=== PATIENT | male | born 1965 | race Caucasian/White ===

== ENCOUNTER → 2024-11-24 | Outpatient (REF) | payer OTHER ==
[2024-11-24 13:14] LABS: ALT/SGPT 16 U/L (7.0-40); AST/SGOT 18 U/L (<34); CALCIUM LEVEL 9.8 MG/DL (8.3-10.6); CARBON DIOXIDE LEVEL 25 MMOL/L (20-31); CHLORIDE LEVEL 100 MMOL/L (98-107); CHOLESTEROL LEVEL 145 MG/DL (<200); CHOLESTEROL RISK RATIO 3.96 (<5); CREATININE FOR GFR 1.13 MG/DL (0.70-1.30); GLOMERULAR FILTRATION RATE 74.0 (>49); LDL CHOLESTEROL 78.4 MG/DL (<100); NON-HDL-C 108.4 MG/DL; POTASSIUM SERUM 4.3 MMOL/L (3.5-5.1); SODIUM LEVEL 136 MMOL/L (136-145); TRIGLYCERIDES LEVEL 150 MG/DL (<150)
[2024-11-24 13:28] LABS: ESTIMATED AVERAGE GLUCOSE 166.0 MG/DL (60-110)
== END ==
LOC: M LAB REF 12:24
PROVIDERS: ATTEND Family Medicine Addiction Medicine
DX: E11.9 Type 2 diabetes mellitus without complications (principal); M1A.0790 Idiopathic chronic gout, unspecified ankle and foot, without tophus (tophi)

== ENCOUNTER → 2025-01-27 | Outpatient (CLI) | payer OTHER | LOC: M RAD 14:28 | PROVIDERS: ATTEND Physician Assistant | DX: Z12.2 Encounter for screening for malignant neoplasm of respiratory organs (principal); F17.218 Nicotine dependence, cigarettes, with other nicotine-induced disorders; J43.9 Emphysema, unspecified; I25.10 Atherosclerotic heart disease of native coronary artery without angina pectoris ==

== ENCOUNTER → 2025-03-15 | Outpatient (REF) | payer OTHER ==
[2025-03-15 12:54] LABS: ESTIMATED AVERAGE GLUCOSE 174.0 MG/DL (60-110)
[2025-03-15 13:14] LABS: ALT/SGPT 15.0 U/L (7.0-40); AST/SGOT 17.0 U/L (<34); CALCIUM LEVEL 9.3 MG/DL (8.3-10.6); CARBON DIOXIDE LEVEL 27.0 MMOL/L (20-31); CHLORIDE LEVEL 102.0 MMOL/L (98-107); CHOLESTEROL LEVEL 113.0 MG/DL (<200); CHOLESTEROL RISK RATIO 3.53 (<5); CREATININE FOR GFR 1.16 MG/DL (0.70-1.30); GLOMERULAR FILTRATION RATE 71.2 (>49); LDL CHOLESTEROL 52.4 MG/DL (<100); NON-HDL-C 81.0 MG/DL; POTASSIUM SERUM 4.4 MMOL/L (3.5-5.1); SODIUM LEVEL 138.0 MMOL/L (136-145); TRIGLYCERIDES LEVEL 143.0 MG/DL (<150)
[2025-03-15 13:34] LABS: CREATININE, URINE 78.8 MG/DL; MALB URINE SIEMENS 10.0 MG/L; MAU/CREAT RATIO 12.6 MCG/MG (0.0-30.0)
== END ==
LOC: M LAB REF 11:49
PROVIDERS: ATTEND Family Medicine Addiction Medicine
DX: E11.9 Type 2 diabetes mellitus without complications (principal)